=== PATIENT | female | born 1980 | race Caucasian/White ===

== ENCOUNTER 2018-01-05 05:09 | Inpatient (IN) ==
[2018-01-05] MEDS ORDERED: Chlorhexidine Gluconate 2% 1 Pack (2 Cloths) TOPICAL SCH (05:45)
[2018-01-05] MEDS ORDERED: Metoprolol Tartrate 25 MG Tablet PO SCH (05:45)
[2018-01-05] MEDS ORDERED: Scopalamine 1.5 MG Patch T-DERMAL SCH (06:00)
[2018-01-05] MEDS ORDERED: Sodium Chlor 0.9% Inj 500 ML IV.SIG SCH (06:00)
[2018-01-05] MEDS ORDERED: ceFAZolin 2 GM Premix Inj 2 GM/100 ML BAG IV.SIG SCH (06:00)
[2018-01-05] MEDS ORDERED: Dexmedetomidine Inj 200 MCG/2 ML Vial ONE (06:24)
[2018-01-05] MEDS ORDERED: Ketamine Inj 50 MG/5 ML Syringe IV.PUSH ONE (06:24)
[2018-01-05] MEDS ORDERED: Propofol Inj 500 MG/50 ML Vial ONE ×2 (06:25→08:23)
[2018-01-05] MEDS ORDERED: HYDROmorphone PF Inj 2 MG/ML Vial ONE (06:55)
[2018-01-05] MEDS ORDERED: Sugammadex Inj 200 MG/2 ML Vial IV.PUSH ONE (06:55)
[2018-01-05] MEDS ORDERED: Naloxone Inj 0.4 MG/ML Vial ONE (06:56)
[2018-01-05] MEDS ORDERED: Bupivacaine/Epinephrine 0.5% Inj 50 ML Vial ONE (06:57)
[2018-01-05] MEDS ORDERED: ceFAZolin 2 GM Premix Inj 2 GM/50 ML PIGGYBACK IV.SIG ONE (06:58)
[2018-01-05] MEDS ORDERED: diphenhydrAMINE HCl 12.5 MG/5 ML Elixir UDC PO PRN (09:30)
[2018-01-05] MEDS ORDERED: Naloxone Inj 0.4 MG/ML Vial IV.PUSH PRN (09:34)
[2018-01-05] MEDS ORDERED: Post-op Orders (for Pharmacy) OTHER STA (09:43)
[2018-01-05] MEDS ORDERED: *morphine SULFATE 10 MG/ML PERIprocedure ONLY ONE (09:55)
[2018-01-05] MEDS: KCL 20 mEq/NACL 0.45% Inj 1,000 ML IV.CONT SCH ×2 (10:20→17:43)
[2018-01-05] MEDS: Morphine Inj 30 MG/30 ML PCA.VIAL PCA PRN ×2 (10:47→20:22)
[2018-01-05] MEDS ORDERED: Ketorolac Inj 30 MG/ML (IVP) Vial IV.PUSH ONE (12:00)
[2018-01-05] MEDS ORDERED: Succinylcholine Inj 100 MG/5 ML Syringe IV.PUSH ONE (12:00)
[2018-01-05] MEDS ORDERED: Lidocaine PF 1% Inj 5 ML Syringe INFILTRATN ONE (12:00)
[2018-01-05] MEDS ORDERED: diphenhydrAMINE HCl 50 MG/ML VIAL IV.PUSH ONE (12:19)
[2018-01-05] MEDS: Enoxaparin Inj 40 MG/0.4 ML Syringe SQ SCH (14:12)
[2018-01-06 05:55] LABS: Hematocrit 32.6 % (35.0-46.0); Hemoglobin 10.6 gm/dL (11.6-15.3); Lymph # (Auto) 1.1 th/mm3 (1.0-4.8); Lymph % (Auto) 10.9 % (9.0-44.0); Mean Corpuscular HGB Conc 32.5 % (32.0-36.0); Mean Corpuscular Hemoglobin 23.8 pg (27.0-34.0); Mean Corpuscular Volume 73.3 fL (80.0-100.0); Mean Platelet Volume 9.9 fL (7.0-11.0); Mono # (Auto) 0.6 th/mm3 (0.0-0.9); Mono % (Auto) 5.4 % (0.0-8.0); Neut # (Auto) 8.7 th/mm3 (1.8-7.7); Neut % (Auto) 83.7 % (16.0-70.0); Platelet Count 165 th/mm3 (150-450); Red Blood Count 4.44 mil/mm3 (4.00-5.30); Red Cell Distribution Width 17.2 % (11.6-17.2); White Blood Count 10.4 th/mm3 (4.0-11.0)
[2018-01-06 06:16] LABS: Calcium 8.4 mg/dL (8.5-10.1); Carbon Dioxide 23.7 meq/L (21.0-32.0); Magnesium 1.9 mg/dL (1.5-2.5); Potassium 4.4 meq/L (3.5-5.1)
[2018-01-06] MEDS: KCL 20 mEq/NACL 0.45% Inj 1,000 ML IV.CONT SCH ×3 (06:28→17:19)
[2018-01-06] MEDS ORDERED: Dextrose 50% in Water 50 ML Vial IV.PUSH PRN (09:25)
[2018-01-06] MEDS: Insulin NovoLOG Aspart Correctional Sugar Inj SQ SCH ×3 (11:43→20:11)
[2018-01-06] MEDS: Enoxaparin Inj 40 MG/0.4 ML Syringe SQ SCH (13:35)
--- NOTE | 2018-01-06 15:41 | P.PNGS ---
Subjective Interval history: Doing well No GI complaints, + flatus Pain well controlled Physical Exam Vital signs: Vital Signs 01/05/18 16:00 01/05/18 20:00 01/06/18 00:00 Temperature 96.3 F L 98.0 F 97.4 F L Pulse Rate 76 74 75 Respiratory Rate 19 18 19 Blood Pressure 134/72 146/64 H 129/70 Pulse Oximetry 96 93 L 94 L 01/06/18 04:00 01/06/18 08:00 01/06/18 12:00 Temperature 97.3 F L 98.0 F 97.9 F Pulse Rate 69 66 58 L Respiratory Rate 18 19 16 Blood Pressure 119/59 L 146/90 H 133/66 Pulse Oximetry 95 94 L 95 Intake & Output 01/05/18 01/06/18 01/06/18 18:59 06:59 18:59 Intake Total 2760 / 2760 2100 / 2100 300 / 300 Output Total 500 / 500 Balance 2260 / 2260 2100 / 2100 300 / 300 Weight 142.6 kg Intake: IV 2550 / 2550 1400 / 1400 300 / 300 Potassium Chlor 20 mEq/NACL 0. 1000 / 1000 1000 / 1000 45% Inj 1,000 ML @ 125 mls/hr IV.CONT .Q8H ROXANA Rx#:[id number] Ofirmev Inj 1,000 mg In 100 ml 200 / 200 200 / 200 100 / 100 @ 400 mls/hr IV.SIG Q6H ROXANA Rx# :[id number] LR 1000 mL Inj 1,000 ML @ 30 1000 / 1000 mls/hr IV.SIG .Q24H ROXANA Rx#: [id number] Ancef 2 GM Premix Inj 2 gm In 50 / 50 50 ml @ 0 mls/hr IV.SIG .STK- MED ONE Rx#:[id number] Ancef Inj 1,000 MG In NS Inj 100 / 100 100 / 100 100 / 100 100 ML @ 200 mls/hr IV.SIG Q8H ROXANA Rx#:[id number] Flagyl 500 MG Inj 100 ML @ 100 200 / 200 100 / 100 100 / 100 mls/hr IV.SIG Q8H ROXANA Rx#: [id number] Oral 210 / 210 700 / 700 Output: Urine 500 / 500 Other: # Voids 3 Narrative: GENERAL: NAD RESPIRATORY: No accessory muscle use GASTROINTESTINAL: Abdomen soft, normal post-op tenderness. Surgical incisions C/ D/I MUSCULOSKELETAL: Extremities without clubbing, cyanosis, or edema. NEURO: Alert & Oriented x4 to person, place, time, situation. Moves all ext x4 - Additional findings Additional findings: Laboratory Results - last 12 hr 01/06/18 01/06/18 01/06/18 05:22 05:22 11:40 WBC 10.4 RBC 4.44 Hgb 10.6 L Hct 32.6 L MCV 73.3 L MCH 23.8 L MCHC 32.5 RDW 17.2 Plt Count 165 MPV 9.9 Neut % (Auto) 83.7 H Lymph % (Auto) 10.9 [place] % (Auto) 5.4 Eos % (Auto) 0.0 Baso % (Auto) 0.0 Neut # (Auto) 8.7 H Lymph # (Auto) 1.1 [place] # (Auto) 0.6 Eos # (Auto) 0.0 Baso # (Auto) 0.0 WBC Differential . 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 I reviewed and agree with the findings presented. I attest that I had a [id number] encounter with the patient on the same day, and personally performed and documented my assessment and findings in the medical record.
[2018-01-06] MEDS: Acetaminophen-HYDROcodone 325/7.5 Liq 15 ML UDC PO PRN (18:13)
[2018-01-06 21:27] VITALS: O2SAT 98
[2018-01-07] MEDS: Acetaminophen-HYDROcodone 325/7.5 Liq 15 ML UDC PO PRN ×2 (00:47→08:28)
[2018-01-07] MEDS: KCL 20 mEq/NACL 0.45% Inj 1,000 ML IV.CONT SCH (06:00)
--- NOTE | 2018-01-07 08:56 | P.PNGS ---
Subjective Patient reports: no new complaints, feels better, flatus, no bowel movement ( doing well 60cc/30min) Physical Exam Vital signs: Vital Signs 01/06/18 12:00 01/06/18 16:00 01/06/18 20:00 Temperature 97.9 F 97.6 F 97.8 F Pulse Rate 58 L 62 71 Respiratory Rate 16 17 17 Blood Pressure 133/66 132/70 134/85 Pulse Oximetry 95 97 98 01/07/18 00:00 Temperature 97.7 F Pulse Rate 75 Respiratory Rate 17 Blood Pressure 132/68 Pulse Oximetry 98 Intake & Output 01/06/18 01/07/18 01/07/18 18:59 06:59 18:59 Intake Total 300 / 300 1480 / 1480 Balance 300 / 300 1480 / 1480 Intake: IV 300 / 300 1000 / 1000 Potassium Chlor 20 mEq/NACL 0. 1000 / 1000 45% Inj 1,000 ML @ 50 mls/hr IV .CONT .Q20H ROXANA Rx#:[id number] Ofirmev Inj 1,000 mg In 100 ml 100 / 100 @ 400 mls/hr IV.SIG Q6H ROXANA Rx# :[id number] Ancef Inj 1,000 MG In NS Inj 100 / 100 100 ML @ 200 mls/hr IV.SIG Q8H ROXANA Rx#:[id number] Flagyl 500 MG Inj 100 ML @ 100 100 / 100 mls/hr IV.SIG Q8H ROXANA Rx#: [id number] Oral 480 / 480 Other: # Voids 2 - Constitutional no acute distress - Routine Respiratory Exam Present: CTA bilaterally - Routine Cardiovascular Exam Present: RRR - Routine Abdominal Exam Present: soft (minimal incisional tenderness) Assessment and Plan - Plan POD 2 Lap Gastric bypass- doing well PLAN Bariatric liquid diet po pain control oob dvt ppx d/c home today
[2018-01-07 09:54] VITALS: BP 127/73; PULSE 78; RESP 18; TEMP 98.2
--- NOTE | 2018-01-16 13:04 | MP ---
cc: Joes J Alfred MD DATE OF OPERATION: 01/05/2018 PREOPERATIVE DIAGNOSES: Morbid obesity with a BMI of 41, complicated by hyperlipidemia. POSTOPERATIVE DIAGNOSES: Morbid obesity with a BMI of 41, complicated by hyperlipidemia. PROCEDURE PERFORMED: Laparoscopic Etelvina-en-Y gastric bypass, 100 cm [place] limb, antegastric, antecolic. SURGEON: Jose J Alfred MD RADIOLOGY MANAGER: Bryan Olmstead MD ANESTHESIA: General endotracheal anesthesia. ESTIMATED BLOOD LOSS: Scant. FINDINGS: Fatty liver. SPECIMENS: None. COMPLICATIONS: None. OPERATION: The patient was brought to the operating room and placed on the operating table in supine position, bilateral sequential inflation device placed on lower extremities, general anesthesia instituted, antibiotics initiated. The abdomen was prepped and draped sterilely. A point 18-cm distal to the xiphoid in the midline anesthetized with 0.25% Marcaine with epinephrine. The skin incision was made, a 5-mm OptiView port placed under direct vision and pneumoperitoneum was created. Under direct vision a 5-mm left upper quadrant, 12-mm left upper quadrant, 12-mm right upper quadrant and 5-mm right upper quadrant ports were placed. Prior to placement of all ports, the skin and peritoneum were anesthetized with 0.25% Marcaine with epinephrine. The patient's omentum was lifted into the upper abdomen. It was split down the middle to create a path for the Etelvina limb. The ligament of Treitz was identified, a point 40 cm distal identified. The small bowel was divided in this region using an [place] Flex stapler vascular load reinforced with SeamGuard. The distal segment was brought up for a distance of 100 cm, enterotomy created in this region, enterotomy in the biliopancreatic limb and a [id number] stapled jejunojejunostomy created in the usual manner. The mesenteric defect at the jejunojejunostomy was closed with 2-0 Surgidac suture in a running manner. The patient was placed in reverse Trendelenburg position with the left side up. The [place]-Flex retractor was placed. The left lobe of the liver was retracted. The angle of His was taken down bluntly, a point 5 cm distal to the GE junction along the lesser curve identified, the lesser sac entered using blunt dissection. The stomach was partitioned horizontally using an [place]-Flex stapler blue load, an additional firing taken directed towards the angle of His to completely divide the stomach. A gastrotomy created in the new stomach, enterotomy in the Etelvina limb and gastrojejunostomy created, stomal opening of 2 cm. An 18-[place] orogastric tube was placed across the anastomosis, the defect then closed in two layers of running 2-0 Vicryl. Prior to placement of the second layer, methylene blue instilled through the orogastric tube. There was no evidence of extravasation. Evicel was then placed over the gastrojejunostomy, jejunojejunostomy and all staple lines. The operative field inspected and hemostasis was present. The CO2 was released, all ports were removed. All skin incisions were closed with 4-0 Monocryl. The abdominal wall was cleaned and a sterile dressing placed. The patient was awakened and taken to the recovery room. MD MIGNON Mederos/mike , 11:26 AM , 11:29 AM
== END 2018-01-07 11:13 | disposition home or self-care (01) ==
LOC: HSDI 05:09 → N07 12:33
PROVIDERS: ADMIT Surgery; ATTEND Surgery